=== PATIENT | female | born 1965 | race Caucasian/White ===

== ENCOUNTER 2020-04-14 09:16 | Day surgery (SDC) | payer OTHER ==
[2020-04-14 10:27] VITALS: TEMP 97.9
[2020-04-14] MEDS ORDERED: LIDOCAINE HCL 2% (20ML MULTI-DOSE VIAL) ONE (10:50)
[2020-04-14] MEDS ORDERED: BUPIVACAINE HCL/PF 0.25% (2.5MG/ML) 10 ML VIAL ONE (10:50)
[2020-04-14] MEDS ORDERED: PROPOFOL 20 ML ONE ×3 (10:55→11:38)
[2020-04-14] MEDS ORDERED: MIDAZOLAM HCL 2 MG/2 ML SINGLE DOSE VIAL ONE (10:55)
[2020-04-14] MEDS ORDERED: BUPIVACAINE HCL/PF 2.5 MG/ML - 30 ML VIAL IJ ONE (11:17)
[2020-04-14] MEDS ORDERED: LIDOCAINE HCL 1%, 10 MG/ML (50 mL VIAL) INF ONE (11:25)
[2020-04-14] MEDS ORDERED: ceFAZolin SODIUM 1 GM VIAL ONE (11:37)
[2020-04-14] MEDS ORDERED: oxyCODONE HCL 5 MG TABLET PO PRN (12:13)
[2020-04-14] MEDS ORDERED: ONDANSETRON 4 MG/2 ML VIAL IVPUSH PRN (12:13)
[2020-04-14] MEDS ORDERED: LACTATED RINGERS SOLUTION 1,000 ML IV SCH (12:15)
[2020-04-14] MEDS ORDERED: BUPIVACAINE HCL/PF 0.25% (2.5MG/ML) 10 ML VIAL IJ ONE (12:19)
[2020-04-14] MEDS ORDERED: DEXAMETHASONE SOD PHOSPHATE 4 MG/1 ML VIAL IVPUSH ONE (12:20)
[2020-04-14 12:44] VITALS: PULSE 73
--- NOTE | 2020-04-14 13:43 | OP ---
DATE OF OPERATION: 04/14/2020 SURGEON: Thong Victor DPM DIRECTOR OF PRODUCT DESIGN: Karsten PREOPERATIVE DIAGNOSIS: Bunion and hammertoe and bursitis of left foot. The hammer toe is the 2nd digit. POSTOPERATIVE DIAGNOSIS: Bunion and hammertoe and bursitis of left foot. The hammer toe is the 2nd digit. PROCEDURE: Hitesh type bunionectomy, arthroplasty of the proximal interphalangeal joint and an injection of the bursitis 2nd metatarsophalangeal joint, all left foot. PROCEDURE: Under satisfactory local anesthesia and IV sedation the patient was prepped and draped in the usual sterile manner. Attention was directed to the 1st MPJ. A linear incision was made. It was carried down to the level of the joint capsule, carefully preserving neurovascular structures, Bovie cauterizing bleeders where necessary. A linear capsular incision was performed. The capsule and ligamentous structures attached to the medial dorsal eminence and the head of the metatarsal were dissected free exposing the hypertrophic dorsal medial eminence into the wound which was resected with a surgical saw. A V-shaped osteotomy was then performed from medial to lateral and the head was translocated laterally and fixated with a single 0.062 K-wire with stability and confirmed by x-ray. Attention was then directed to the capsule, which a portion of the capsule was removed and capsular correction was performed. This was done using 2-0 Vicryl. Wound was flushed with copious saline. Vicryl 4-0 was used for the subcutaneous tissue and 4-0 Biosyn for the skin. Steri-Strips were then applied after using Mastisol. Then the 2nd digit was approached. Two converging semi-ellipses were used over the PIPJ to excise the lesion. The PIPJ was then entered. The head of the phalanx was brought into the wound, resected with a double-action bone cutter. It was noted to be smooth. The toe was then flushed with saline. The tendon was closed with 4-0 Vicryl. The skin was closed with Biosyn again 4-0 and Mastisol and Steri-Strip were used to keep that closed. An injection was then performed, postoperative injection for all areas and also a bursa injection sub 2nd MPJ. Bandage was applied. The tourniquet which was utilized was deflated and a normal hyperemic flush returned to all digits of the operative foot. Patient was seen following surgery and was comfortable. All procedures were confirmed by x-ray. GEORGE ANDREW/[id number]
[2020-04-14 16:42] VITALS: BP 136/85
--- NOTE | 2020-04-19 16:20 | PATH ---
Surgical Pathology Report Patient Name: FÁTIMA BLANKENSHIP [facility]. Rec. #: [id number] /Age/Gender: 1965 (Age: 54) / F Account: [id number] Location: [facility] Taken: 04/14/2020 Received: 04/14/2020 Reported: 04/19/2020 Physicians: Thong Victor M.D. Specimen(s) Received LEFT FOOT BONES Clinical History Left foot, bunion, hammertoe, bursitis Final Diagnosis LEFT FOOT BONES, RESECTION: PORTIONS OF BONE WITH FOCAL DEGENERATIVE CHANGE. Electronically Signed Melly Huerta M.D. Gross Description Received in formalin, labeled "left foot bones" are three portions of bone and cartilage, ranging from 0.8-1.5 cm in greatest dimension and one piece of light shell unremarkable skin measuring 0.8 x 0.6 cm. Entirely submitted in one cassette following decalcification. AE/04/15/2020 ebram/04/15/2020
== END 2020-04-14 14:30 | disposition home or self-care (01) ==
LOC: FASU 09:16
PROVIDERS: ATTEND Podiatrist Foot Surgery
PROC: 0SRQ0JZ Replacement of Left Toe Phalangeal Joint with Synthetic Substitute, Open Approach (ICD-10-PCS; 2020-04-14)
PROC: 3E0U3BZ Introduction of Anesthetic Agent into Joints, Percutaneous Approach (ICD-10-PCS; 2020-04-14)
PROC: 0QSP04Z Reposition Left Metatarsal with Internal Fixation Device, Open Approach (ICD-10-PCS; principal; 2020-04-14 11:31)
DX: M21.612 Bunion of left foot (principal); M71.572 Other bursitis, not elsewhere classified, left ankle and foot; M20.42 Other hammer toe(s) (acquired), left foot
CPT/HCPCS: 73630-TC-LT; 88304-TC; 88311-TC